=== PATIENT | female | born 1935 | race Caucasian/White ===

== ENCOUNTER 2017-02-28 19:44 | Observation (INO) | payer OTHER ==
[~2017-02-28] VITALS: Ht 154.9 cm; Wt 50.3 kg
[~2017-02-28 19:44] MED LIST: CIPRO500 MG PO
[2017-02-28 20:42] LABS: HEMATOCRIT 38.7 % (36.0-46.0); MCH 31.2 PG (29.0-34.0); MCHC 33.6 G/DL (30.0-36.0); MCV 92.8 FL (83-99); PLATELET COUNT 174 K/uL (156-360); RBC DIS.WIDTH-CV 13.7 % (11.8-14.6); RBC DIS.WIDTH-SD 46.5 % (39-53); RED BLOOD COUNT 4.17 M/uL (3.80-5.20); WHITE BLOOD COUNT 9.7 K/uL (4.1-10.2)
[2017-02-28 20:54] LABS: CHLORIDE 108 mEq/L (99-109); POTASSIUM 3.9 mEq/L (3.7-5.4); SODIUM 142 mEq/L (136-147)
[2017-02-28 20:55] LABS: GLUCOSE 284 mg/dL (70-99)
[2017-02-28 20:59] LABS: CREATININE 0.7 mg/dL (0.6-1.3); GFR ESTIMATE (CALCULATED) > 59 mL/min/
[2017-02-28 21:00] LABS: UREA NITROGEN (BUN) 22 mg/dL (9-23)
[2017-02-28 21:02] LABS: CREATINE KINASE 486 IU/L (1-294); TOTAL CK 486 IU/L (1-294)
[2017-02-28 21:04] LABS: TROP-I INTERPRETATION NEGATIVE; TROPONIN-I < 0.01 ng/mL (0.0-0.30)
[2017-02-28 21:08] LABS: CK-MB 5.6 ng/mL (0.0-4.9); CKMB RELATIVE INDEX 1.2 (0.0-3.9)
[2017-02-28] MEDS ORDERED: PRINIVIL10 MG PO (22:48)
[2017-02-28] MEDS ORDERED: GLUCOPHAGE XR,500 MG PO (22:48)
[2017-02-28] MEDS ORDERED: LEVO-T50 MCG PO (22:48)
[2017-02-28] MEDS ORDERED: PRAVACHOL20 MG PO (22:48)
[2017-03-01 02:20] VITALS: BP 101/55
[2017-03-01 05:51] LABS: TROP-I INTERPRETATION NEGATIVE; TROPONIN-I < 0.01 ng/mL (0.0-0.30)
[2017-03-01 05:52] LABS: HDL CHOLESTEROL 30 MG/DL (Desirable>=50); LDL CHOLESTEROL 51 mg/dL (Desirable<100); NON-HDL CHOLESTEROL 75 mg/dL (Desirable<160); TOTAL CHOLESTEROL 105 mg/dL (Desirable<200); TRIGLYCERIDES 119 MG/DL (Normal: <150)
[2017-03-01 07:35] VITALS: BP 148/60
[2017-03-01 08:11] LABS: THYROTROPIN (TSH) 6.9 MIU/L (0.4-5.5)
[2017-03-01 09:48] LABS: HEMOGLOBIN A1c (GLYCOHEMOGLOB) 7.6 % (Below 5.7)
[2017-03-01 11:21] LABS: APPEARANCE CLOUDY ((CLEAR)); BILIRUBIN NEGATIVE; BLOOD NEGATIVE; COLOR AMBER ((YELLOW)); GLUCOSE (STRIP) >=500; KETONES NEGATIVE; LEUKOCYTES LARGE; NITRITE NEGATIVE; PROTEIN (STRIP) 30; SPECIFIC GRAVITY 1.017 (1.000-1.030); UROBILINOGEN 0.2 MG/DL (0.2-1.0)
[2017-03-01 11:34] LABS: BACTERIA 1+ /HPF; EPITHELIAL CELLS NONE SEEN /HPF; MUCUS TRACE /LPF; UCUL ADDED? YES; WHITE BLOOD CELLS TNTC /HPF (0-5)
[2017-03-01 11:51] VITALS: BP 105/51
[2017-03-01 15:36] VITALS: BP 136/61
[2017-03-01 19:37] VITALS: BP 115/58
[2017-03-02 06:10] LABS: BASOPHIL (%) 0.8 % (0-1); BASOPHIL COUNT 0.1 K/uL (0-0.1); EOSINOPHIL (%) 1.6 % (0-5); EOSINOPHIL COUNT 0.1 K/uL (0-0.3); HEMATOCRIT 35.4 % (36.0-46.0); HEMOGLOBIN 11.7 G/DL (11.9-15.5); IMMATURE GRANULOCYTE (%) 0.5 % (0.0-0.7); LYMPHOCYTE (%) 26.3 % (15-42); LYMPHOCYTE COUNT 1.6 K/uL (1.0-2.8); MCHC 33.1 G/DL (30.0-36.0); MCV 93.7 FL (83-99); MONOCYTE (%) 11.4 % (3-12); MONOCYTE COUNT 0.7 K/uL (0-0.8); NEUTROPHIL (%) 59.4 % (45-76); NEUTROPHIL COUNT 3.7 K/uL (1.8-6.4); PLATELET COUNT 177 K/uL (156-360); RBC DIS.WIDTH-SD 47.8 % (39-53); RED BLOOD COUNT 3.78 M/uL (3.80-5.20); WHITE BLOOD COUNT 6.2 K/uL (4.1-10.2)
[2017-03-02 07:21] LABS: ALBUMIN 2.6 G/DL (3.2-4.8); ALKALINE PHOSPHATASE 51 IU/L (3-129); ALT (GPT) 13 IU/L (3-49); AST (GOT) 24 IU/L (2-34); CHLORIDE 111 MEQ/L (99-109); CREATININE 0.6 MG/DL (0.6-1.3); GFR ESTIMATE (CALCULATED) > 59 mL/min/; POTASSIUM 3.5 MEQ/L (3.7-5.4); SODIUM 141 MEQ/L (136-147); TOTAL BILIRUBIN 0.9 MG/DL (0.0-1.0); TOTAL PROTEIN 4.8 G/DL (6.4-8.3); UREA NITROGEN (BUN) 14 mg/dL (9-23)
[2017-03-02 07:46] LABS: GLUCOSE 117 mg/dL (70-99)
[2017-03-02 07:54] VITALS: BP 114/62
[2017-03-02 11:52] VITALS: BP 117/57
[2017-03-02 15:29] VITALS: BP 142/63
[2017-03-02 19:00] VITALS: BP 134/63
[2017-03-03] VITALS (7 sets, daily range): BP systolic 128–165; BP diastolic 61–74
[2017-03-04 04:01] VITALS: BP 151/66
[2017-03-04 07:26] VITALS: BP 189/90
[2017-03-04 11:14] VITALS: BP 157/72
[2017-03-04] MEDS ORDERED: VANTIN200 MG PO (12:02)
[2017-03-04 15:56] VITALS: BP 138/62
== END 2017-03-04 17:44 ==
LOC: EME → EDBD 19:44 → EME 19:44 → 5WEST 03-01 00:25 → EDOF 03-01 00:25 → ENRESERV 03-01 00:27 → 5WEST 03-01 02:02
PROVIDERS: Emergency Medicine; Hospitalist; Physician Assistant; Student in an Organized Health Care Education/Training Program
DX: N39.0 Urinary tract infection, site not specified (principal); W19.XXXA Unspecified fall, initial encounter; M62.82 Rhabdomyolysis; E86.0 Dehydration; E78.5 Hyperlipidemia, unspecified; F03.90 Unspecified dementia, unspecified severity, without behavioral disturbance, psychotic disturbance, mood disturbance, and anxiety; I10 Essential (primary) hypertension; E11.65 Type 2 diabetes mellitus with hyperglycemia; E03.9 Hypothyroidism, unspecified; Z60.2 Problems related to living alone; Z79.84 Long term (current) use of oral hypoglycemic drugs
CPT/HCPCS: 70450; 70551; 71046; 72131; 74176; 80048; 80053; 80061; 81003; 82550; 82550 91; 82553; 82948; 83036; 84439; 84443; 84484; 85025; 85027; 87077; 87086; 87186; 93005; 93880; 97530 GO; 99281; 99285; G0378; G8978 GP CM; G8979 GP CL; G8980 GP CM; G8987 GO CL; G8988 GO CK; G8989 GO CL; J0696; J1644; J1815; J2405; J7030